=== PATIENT | female | born 1995 | race Caucasian/White ===

== ENCOUNTER 2019-04-17 15:02 | Inpatient (IN) ==
[~2019-04-17 15:02] MED LIST: OXYTOCIN/LR 20 UNIT/1,000 ML BAG IV SCH
[2019-04-17] MEDS ORDERED: ONDANSETRON 4 MG/2 ML VIAL IV PRN (15:17)
[2019-04-17] MEDS ORDERED: DINOPROSTONE VAG GEL 10 MG SYRINGE VAG ONE (15:20)
[2019-04-17 15:38] LABS: Basophils % 0.3 % (0.0-0.8); Eosinophils # 0.1 10*3/uL (0.0-0.87); Eosinophils % 1.5 % (0.00-10.9); Hematocrit 36.2 VOL% (35.7-47.0); Hemoglobin 11.4 GM/DL (12.0-16.0); Immature Granulocytes % 0.5 %; Immature Granulocytes Absolute 0.04 #; Lymphocytes # 1.2 10*3/uL (1.4-4.0); Lymphocytes % 16.5 % (21.3-54.2); Mean Corpuscular HGB Conc 31.5 GM/DL (32-36); Mean Platelet Volume 9.8 FL (9.6-12.0); Monocytes % 8.7 % (1.7-12.7); Neutrophils % 72.5 % (38.7-73.9); Platelet Count 212 T/CUMM (130-400); Red Blood Count 4.47 MC/CUMM (3.8-5.5); Red Cell Distribution Width 13.6 % (9.3-17.3); White Blood Count 7.5 T/CUMM (4-12)
[2019-04-17 15:55] LABS: Alanine Aminotransferase 19 U/L (13-56); Albumin 2.9 G/DL (3.4-5.0); Alkaline Phosphatase 151 U/L (45-117); Aspartate Amino Transferase 13 U/L (0-37); Bilirubin,Total < 0.39 MG/DL (0.2-1.0); Blood Urea Nitrogen 9 MG/DL (7-18); Calcium 8.7 MG/DL (8.5-10.1); Estimated Glom Filtration Rate 186 ML/MIN; Glucose 76 MG/DL (74-106); Osmolality,Calculated 272.7 MOS/KG (273-304); Total Protein 6.7 G/DL (6.4-8.3)
[2019-04-18] MEDS ORDERED: OXYTOCIN/LR 20 UNIT/1,000 ML BAG IV SCH (02:00)
[2019-04-18] MEDS: LACTATED RINGERS 1,000 ML IV SCH ×4 (02:05→20:30)
[2019-04-18] MEDS ORDERED: ePHEDrine 50 MG/ML AMP IV PRN (09:04)
[2019-04-18] MEDS ORDERED: FAMOTIDINE 20 MG/2 ML VIAL IV ONE (09:04)
[2019-04-18] MEDS ORDERED: hydrOXYzine HCL 25 MG/1 ML VIAL IM PRN (09:04)
[2019-04-18] MEDS ORDERED: LACTATED RINGERS 1,000 ML IV ONE (09:04)
[2019-04-18] MEDS ORDERED: NALOXONE 0.4 MG/ML VIAL IV PRN (09:04)
[2019-04-18] MEDS ORDERED: CITRIC ACID/SODIUM CITRATE 30 ML UDCUP PO ONE (09:04)
[2019-04-18] MEDS ORDERED: ONDANSETRON 4 MG/2 ML VIAL IV ONE (09:04)
[2019-04-18] MEDS ORDERED: PROMETHAZINE 25 MG/1 ML VIAL IM ONE (09:04)
[2019-04-18] MEDS ORDERED: diphenhydrAMINE 50 MG/1 ML VIAL IV PRN ×2 (09:04)
[2019-04-18] MEDS ORDERED: fentaNYL 2 MCG/ROPIV 0.2% EPID 100 ML EPIDURAL SCH (09:30)
[2019-04-18] MEDS: MEPERIDINE 50 MG/1 ML VIAL IV PRN ×2 (09:34→12:15)
[2019-04-18 14:47] LABS: Apearance,Urine CLEAR (Clear); Bilirubin,Urine Negative (Negative); Blood, Urine Negative (Negative); Glucose,Urine (UA) Negative (Negative); Ketones,Urine 80 mg/dL (Negative); Mucus,Urine Occasional /LPF (Occasional); Nitrite,Urine Negative (Negative); Protein,Urine Negative; RBC,Urine 1 /HPF (0-4); Squamous Epithelial Cell,Urine Occasional /HPF (0-10); Urine Color Yellow (Yellow); Urine Specific Gravity 1.016 (1.001-1.035); Urine Urobilinogen < 2.0 EU/DL (0.2-1.0); WBC,Urine 1 /HPF (0-6)
[2019-04-18] MEDS ORDERED: ceFAZolin 3,000 MG in SYRINGE 1 EACH IV ONE (20:09)
[2019-04-18] MEDS ORDERED: CITRIC ACID/SODIUM CITRATE 30 ML UDCUP ONE (20:53)
[2019-04-18] MEDS ORDERED: PHENYLEPHRINE 1 MG/10 ML SYRINGE IV ONE (20:54)
[2019-04-18] MEDS ORDERED: OXYTOCIN 10 UNIT/ML VIAL IM ONE (20:54)
[2019-04-18] MEDS ORDERED: OXYTOCIN/LR 30 UNIT/1,000 ML BAG IV ONE (21:00)
[2019-04-18 21:39] LABS: Cord Arterial Blood HCO3 18.7 MMOL/L
[2019-04-18 21:42] LABS: Cord Venous Blood HCO3 19.5 MMOL/L; Cord Venous Blood PCO2 47.2 MMHG
[2019-04-18 21:43] LABS: Cord Venous Blood PO2 17.4
[2019-04-18] MEDS ORDERED: OXYTOCIN/LR 20 UNIT/1,000 ML BAG IV ONE (21:56)
[2019-04-18] MEDS ORDERED: MAGNESIUM HYDROXIDE SUSP 30 ML UDCUP PO PRN (21:56)
[2019-04-18] MEDS ORDERED: ACETAMINOPHEN 325 MG TABLET PO PRN (21:56)
[2019-04-18] MEDS ORDERED: ONDANSETRON 4 MG/2 ML VIAL IV PRN (21:56)
[2019-04-18] MEDS ORDERED: RHO(D) IMMUNE GLOBULIN 300 MCG SYRINGE IM ONE (21:56)
[2019-04-18] MEDS ORDERED: LACTATED RINGERS 1,000 ML IV SCH (22:00)
[2019-04-18] MEDS ORDERED: fentaNYL 100 MCG/2 ML VIAL ONE (22:04)
[2019-04-18] MEDS ORDERED: MORPHINE 10 MG/10 ML VIAL ONE (22:04)
[2019-04-18] MEDS ORDERED: MIDAZOLAM 2 MG/2 ML VIAL ONE (22:05)
[2019-04-18] MEDS ORDERED: LIDOCAINE MPF 2% /EPI 20 ML VIAL ONE (22:05)
[2019-04-19] MEDS: ceFAZolin 1,000 MG in SYRINGE 1 EACH IV SCH ×2 (05:27→13:07)
[2019-04-19 07:23] LABS: Basophils % 0.3 % (0.0-0.8); Eosinophils # 0.1 10*3/uL (0.0-0.87); Eosinophils % 0.4 % (0.00-10.9); Hematocrit 30.2 VOL% (35.7-47.0); Immature Granulocytes % 0.4 %; Immature Granulocytes Absolute 0.06 #; Lymphocytes # 1.3 10*3/uL (1.4-4.0); Mean Corpuscular HGB Conc 31.1 GM/DL (32-36); Mean Platelet Volume 9.7 FL (9.6-12.0); Monocytes % 8.8 % (1.7-12.7); Neutrophils % 81.1 % (38.7-73.9); Red Blood Count 3.73 MC/CUMM (3.8-5.5)
[2019-04-19 07:35] LABS: Hemoglobin 9.4 GM/DL (12.0-16.0); Platelet Count 162 T/CUMM (130-400); White Blood Count 14.1 T/CUMM (4-12)
[2019-04-19] MEDS: METOCLOPRAMIDE 10 MG TABLET PO SCH ×4 (09:38→23:43)
[2019-04-19] MEDS: SIMETHICONE CHEW 80 MG TABLET PO PRN (09:38)
[2019-04-19] MEDS: MULTIVITAMIN (PRENATAL) TABLET PO SCH (09:38)
[2019-04-19] MEDS: DOCUSATE SODIUM 100 MG CAPSULE PO SCH ×2 (09:39→21:14)
[2019-04-19] MEDS: IBUPROFEN 800 MG TABLET PO PRN (19:39)
[2019-04-20] MEDS: MULTIVITAMIN (PRENATAL) TABLET PO SCH (10:08)
[2019-04-20] MEDS: SIMETHICONE CHEW 80 MG TABLET PO PRN (10:09)
[2019-04-20] MEDS: DOCUSATE SODIUM 100 MG CAPSULE PO SCH (10:09)
[2019-04-20] MEDS: METOCLOPRAMIDE 10 MG TABLET PO SCH (10:09)
[2019-04-20] MEDS: IBUPROFEN 800 MG TABLET PO PRN (11:48)
[2019-04-20 12:51] VITALS: BP 123/65
== END 2019-04-20 16:50 | disposition home or self-care (01) | DRG 540 ==
LOC: N.LDOUT 15:02 → N.LD 15:08 → N.OB 04-19 00:41
PROVIDERS: ADMIT Obstetrics & Gynecology; ATTEND Obstetrics & Gynecology
PROC: LDCSECT (ICD-10-PCS; 2019-04-18 21:00)